=== PATIENT | female | born 1945 | race African-American/Black ===

== ENCOUNTER 2019-02-05 10:31 | Inpatient (IN) ==
[2019-02-04 15:23] LABS: HEMATOCRIT 37.5 % (37.0-47.0); HEMOGLOBIN 12.3 g/dL (12.0-16.0); MCH 29.8 PG (27-31); MCHC 32.8 g/dL (33-37); MCV 90.8 FL (81-99); MPV 9.6 FL (7.4-10.4); RBC 4.13 XMIL (4.2-5.4); RDW 14.9 % (11.5-14.5); WBC 15.07 X1000 (4.8-10.8)
--- NOTE | 2019-02-04 15:27 | EKG Report ---
Test Performed on : 02/04/2019 2:53:09 PM Test Reason : pre-op Blood Pressure : / mmHG Vent. Rate : 057 BPM Atrial Rate : 057 BPM P-R Int : 156 ms QRS Dur : 084 ms QT Int : 428 ms P-R-T Axes : 057 -06 021 degrees QTc Int : 416 ms Sinus bradycardia. Voltage criteria for left ventricular hypertrophy U waves present V3-V6, consider hypokalemia Abnormal ECG When compared with ECG of 22-NOV-2017 08:28, Criteria for Septal infarct are no longer present Nonspecific T wave abnormality, improved in Inferior leads Confirmed by Indira UNGER, Jg Hsu ([id number]) on 02/05/2019 1:17:04 PM
[2019-02-04 15:57] LABS: CALCIUM 9.9 mg/dL (8.8-10.2); CREATININE 1.9 mg/dL (0.5-0.9); POTASSIUM 4.9 mmol/L (3.5-5.1)
[2019-02-05] MEDS ORDERED: LR 1,000 ML ONE (11:10)
[2019-02-05] MEDS ORDERED: KEFZOL 1 GM/D5W 2 GM/100 ML IVPB ONE (11:35)
[2019-02-05] MEDS ORDERED: DIPRIVAN 1% ONE (14:34)
[2019-02-05] MEDS ORDERED: XYLOCAINE-MPF 2% ONE (14:35)
[2019-02-05] MEDS ORDERED: EPHEDRINE ONE (15:03)
[2019-02-05] MEDS ORDERED: VENTOLIN HFA ONE (15:04)
[2019-02-05] MEDS ORDERED: 1/2 NS 1,000 ML ONE (15:50)
[2019-02-05] MEDS: DILAUDID ONE ×4 (15:50→16:11)
[2019-02-05] MEDS ORDERED: NORCO-10 PO PRN (16:15)
[2019-02-05] MEDS ORDERED: NORCO-5 PO PRN (16:15)
[2019-02-05] MEDS ORDERED: NORCO-7.5 ONE (16:47)
[2019-02-05] MEDS ORDERED: VANCOMYCIN 1 GM/NS 1 GM/250 ML IVPB IV SCH (17:00)
--- NOTE | 2019-02-05 21:38 | OPERATIVE NOTE ---
PROCEDURE DATE: 02/05/2019 PREOP DIAGNOSIS: A subcutaneous abscess, left hip/posterior buttock. POSTOP DIAGNOSIS: A subcutaneous abscess, left hip/posterior buttock. PROCEDURE: Debridement, incision and drainage left subcu buttock or hip abscess. SURGEON: Tina Alvarez MD. MORGUE KEEPER: JAYNA Brewster. ANESTHESIA: General. COMPLICATION: None. PROCEDURE IN DETAIL: A 74-year-old female presents for incision and drainage of a left subcutaneous hip abscess over the buttock. Risks, benefits, and no guarantees were discussed and she is willing to proceed. She was taken to the operating room and satisfactory anesthesia obtained. She was placed in lateral position with the left hip upward. The left hip was prepped and draped in usual sterile fashion. A time-out was taken to confirm operative site, procedure and patient. Sinus tract over the abscess was then cultured for both aerobic and anaerobic cultures. An incision was made obliquely over the sinus tract over the area of induration and a possible abscess measuring roughly 1-1/2 inches. Dissection was carried down through the subcutaneous to the space of the abscess. This was irrigated out with saline. Any fibrinous material was excised as well as the sinus tract was sharply excised. The area was probed with finger noted to not penetrate beyond the subcu fatty tissue and the deep fascia was intact. This was then irrigated with Vashe solution and then packed with Betadine-soaked iodoform. It was then loosely closed with 2-0 nylon about the skin with the iodoform out for retrieval. She was sterilely bandaged and then recovered from anesthesia and transferred to the recovery room in stable condition. No intraoperative complications were noted. Instrument count and sponge count was correct at the time of closure. cc: Rui Alvarez MD
[2019-02-05 21:43] LABS: URINE SOURCE CLEAN CATCH
[2019-02-05 21:51] LABS: BILIRUBIN URINE NEGATIVE (NEGATIVE); BLOOD URINE NEGATIVE (NEGATIVE); COLOR YELLOW; GLUCOSE URINE NEGATIVE (NEGATIVE); KETONE URINE NEGATIVE (NEGATIVE); LEUKOCYTES URINE NEGATIVE (NEGATIVE); NITRITE URINE NEGATIVE (NEGATIVE); PROTEIN URINE NEGATIVE (NEGATIVE); SP GRAVITY URINE 1.015; TURBIDITY URINE CLEAR (CLEAR); UR EPITHELIAL CELLS <10 /HPF (<10); URINE BACTERIA NEGATIVE /HPF; URINE RBC <10 /HPF (<10); URINE WBC <10 /HPF (<10); UROBILINOGEN URINE NORMAL (NORMAL)
[2019-02-05] MEDS: NORCO-7.5 PO PRN (22:40)
[2019-02-05] MEDS: PERIDEX MT SCH (22:44)
[2019-02-06] MEDS: PERIDEX MT SCH ×2 (08:19→20:16)
[2019-02-06] MEDS: CUBICIN 500 MG in NS 100 ML IV SCH (08:31)
--- NOTE | 2019-02-06 09:52 | ORTHOPAEDICS PROGRESS NOTE ---
DATE: 02/06/2019 Ms. Gauthier is seen status post I and D of her superficial abscess of the hip. Her cultures are growing a gram-positive cocci. This did not appear to communicate with her joint space or prosthesis. Will ask Dr. Collazo to give us some antibiotic recommendations, either oral or IV, prior to discharge home. She can be discharged home later this afternoon after his evaluation. cc: Rui Alvarez MD
[2019-02-06] MEDS: COREG PO SCH ×2 (14:13→20:16)
--- NOTE | 2019-02-06 14:28 | INFECTIOUS DISEASE CONSULT REP ---
DATE: 02/06/2019 CONCLUSION: The patient is status post debridement, incision and drainage of a left subcutaneous buttock/hip abscess. On Gram stain gram-positive cocci were seen. The patient does have does have end-stage renal disease. RECOMMENDATIONS: I have placed the patient on daptomycin pending culture results. A side effect of daptomycin namely muscle toxicity, has been explained to the patient who agrees with treatment. DISCUSSION: The patient had an steroid injection into her right hip. A few weeks later she noticed she was having pain and swelling in the hip area. She underwent surgery yesterday performed by Dr. Alvarez. Dr. Alvarez in his operative note said that an abscess was found. On Gram stain, gram-positive cocci were seen. The patient's CBC shows a white count of 15,070, hemoglobin 12.3, and platelet count 349,000. Urinalysis shows no white cells or bacteria. Creatinine is 1.9. GFR is 31. PAST MEDICAL HISTORY/REVIEW OF SYSTEMS: Eyes and ears her hearing and vision are good. Neck no stiffness. Respiratory no cough or shortness of breath. Cardiac no chest pain or palpitations. GI no nausea, vomiting, or diarrhea. : No dysuria or flank pain. Neurologic no seizures no loss of motor or sensory function. OB-FOOT DOCTOR: She is a 4, para 4, AB 0. She has had a hysterectomy. PREVIOUS HOSPITALIZATIONS AND OPERATIONS: The patient has had 4 for labor and deliveries, a hysterectomy. She also has had a bilateral total knee arthroplasty and a right total hip arthroplasty. She has had surgery on her lumbar spine. She has had a bilateral carotid end arterectomy. MEDICAL DISEASES: Positive for hypertension and peripheral vascular disease, end-stage renal disease, hyperlipidemia, obesity. INFECTIOUS DISEASE HISTORY: Positive for urinary tract infection. FAMILY HISTORY: Positive for stroke. SOCIAL HISTORY[place] . She lives with her grandson. She does not smoke cigarettes, drink alcoholic beverages or abuse drugs. HOME MEDICATIONS: Include the following alprazolam,Biotin, Coreg, Celebrex, Apresoline, Avapro, Singulair, Pravachol, Xarelto, Imitrex, an triamterene/hydrochlorothiazide. PHYSICAL EXAMINATION: Temperature is 98.5 degrees, pulse 81, respirations 17, blood pressure 152/63. The patient is 5 feet 2 inches tall, weighs 177 pounds. General: Patient is an elderly, obese female. She is in no acute distress. Head/eyes/ears/nose/throat: She can hear my spoken words and see near objects. She does not have any white coating of her tongue. Neck: No meningismus. Lungs: Clear to auscultation. Cardiovascular: Heart rate is regular. Abdomen: Soft and nontender. Extremities: The patient has a dressing over the right hip where the abscess was drained yesterday. The dressing is intact. Neurologic: The patient is alert she can move her extremities. There is no tremor. Her memory as regarding her medical history was fairly good, but there were some facts about it that she did not remember. Thank you for the consult. cc: MD Rui Rodrigues MD
[2019-02-06] MEDS: NORCO-7.5 PO PRN (20:16)
[2019-02-07] MEDS: CUBICIN 500 MG in NS 100 ML IV SCH (09:42)
[2019-02-07] MEDS: PERIDEX MT SCH (09:42)
[2019-02-07] MEDS: COREG PO SCH (09:42)
[2019-02-07 12:14] VITALS: BP 172/70
--- NOTE | 2019-02-07 19:23 | INFECTIOUS DISEASE PROGRESS NO ---
DATE: 02/07/2019 SUBJECTIVE: The patient's abscess has grown methicillin-resistant Staph aureus in vitro. It is susceptible to tetracycline. I am sending the patient home on doxycycline 100 mg p.o. every 12 hours for 2 weeks. Some of the side effects of the antibiotic, including rash, diarrhea, and avoiding sunlight have been explained to the patient. She agrees with treatment. I electronically [email or web address] in [place], which is the pharmacy that the patient uses. I am available to see the patient on a p.r.n. basis. Dr. Alvarez will be following up with the patient. cc: MD Rui Rodrigues MD
--- NOTE | 2019-02-08 09:12 | DISCHARGE SUMMARY ---
ADMISSION DATE: 02/06/2019 DISCHARGE DATE: 02/07/2019 ADMITTING DIAGNOSIS: Abscess and infection of the right hip with cellulitis. DISCHARGE DIAGNOSIS: Abscess and infection of the right hip with cellulitis. HOSPITAL COURSE: Ms. Gauthier is a 74-year-old female who came to the hospital on 02/05/2019, and underwent a routine incision and drainage of her right hip due to an abscess infection that she received from an injection. She tolerated the procedure well, and then she was transferred to the surgical floor. On postop day 1, the packing was taken out of the right hip with some notable drainage. The patient was seen by infectious disease and IV antibiotics were initiated. The patient was then determined to have a staph infection grow out in her culture of Staphylococcus aureus that was resistant to erythromycin, oxacillin, and penicillins. There is susceptibility with tetracyclines, Bactrim, and clindamycin. Infectious Disease will handle the antibiotics to be placed for the patient on discharge. The patient will then follow up with us in the office here in about a week or so. ALLERGIES: Patient has no known drug allergies. PHYSICAL EXAMINATION: The right lateral hip has stitches placed. There is no redness at the current time. There is some mild tenderness noted to the area. The bandages are clean and dry at this time. There is good sensation to right lower extremity. Current hemoglobin and hematocrit is 12.3 and 37.5. Urinalysis is negative. DISPOSITION: Patient to be discharged home. FOLLOWUP: She is to follow up with Dr. Alvarez in about a week for stitch removal. DISCHARGE INSTRUCTIONS: She needs to stay on her antibiotics while she is at home, and finish the whole course. MEDICATIONS: She can continue her carvedilol 6.25 b.i.d. at home as well. Dictated by JAYNA Brewster for Rui Alvarez MD cc: JAYNA Brewster MD
== END 2019-02-07 13:11 | disposition home health service (06) | DRG 858 ==
LOC: OR 10:31 → 4N 10:31
PROVIDERS: ADMIT Orthopaedic Surgery Adult Reconstructive Orthopaedic Surgery; ATTEND Orthopaedic Surgery Adult Reconstructive Orthopaedic Surgery